=== PATIENT | female | born 1970 | race African-American/Black ===

== ENCOUNTER 2018-11-16 14:10 | Emergency (ER) | payer MEDICARE, MEDICAID ==
[~2018-11-16] VITALS: Ht 170.2 cm; Wt 90.0 kg
[~2018-11-16 14:10] MED LIST: ALUPENT; DILANTIN; PHENOBARBITAL
[2018-11-16] MEDS ORDERED: KETOROLAC 30MG/ML VIAL IV ONE (15:30)
[2018-11-16 15:45] LABS: HCG SCREEN NEGATIVE
[2018-11-16 15:46] LABS: CHLORIDE 109 mEq/L (98-107)
[2018-11-16 15:48] LABS: PARTIAL THROMBOPLASTIN TIME 24.3 sec (23.4-31.0); PROTHROMBIN TIME 10.2 sec (9.6-11.0)
[2018-11-16 15:50] VITALS: BP 110/59
[2018-11-16 15:50] LABS: BASOPHILS % 0.4 % (0.0-2.0); EOSINOPHILS % 2.6 % (0.0-5.0); ETHANOL BLOOD < 10 mg/dL; HEMATOCRIT. 34.1 % (36.0-48.0); HEMOGLOBIN. 10.9 g/dL (12.0-16.0); LYMPHOCYTES % 27.8 % (20.0-50.0); MEAN CORPUSCULAR HEMOGLOBIN 24.4 pg (28.0-32.0); MEAN CORPUSCULAR VOLUME 76.2 fL (81.0-99.0); MONOCYTES % 8.3 % (2.0-8.0); NEUTROPHILS % 60.9 % (40.0-76.0); PLATELET 354 x1000/uL (130-400); RED BLOOD CELL COUNT 4.48 mill/uL (4.2-5.4)
[2018-11-16 16:00] LABS: METHADONE URINE SCREEN NEGATIVE (NEGATIVE)
[2018-11-16 16:02] LABS: *BARBITURATES SCREEN URINE NEGATIVE (NEGATIVE); CANNABINOID URINE SCREEN NEGATIVE (NEGATIVE); OPIATES URINE SCREEN NEGATIVE (NEGATIVE); PHENCYCLIDINE URINE SCREEN NEGATIVE (NEGATIVE)
[2018-11-16 16:03] LABS: *BENZODIAZEPINES SCREEN URINE NEGATIVE (NEGATIVE); *COCAINE SCREEN URINE NEGATIVE (NEGATIVE)
[2018-11-16 16:04] LABS: *AMPHETAMINES SCREEN URINE PRESUMTIVE POSITIVE (NEGATIVE)
== END 2018-11-16 17:42 | disposition left against medical advice (07) ==
LOC: ER 14:10
DX: R07.89 Other chest pain (principal); F15.129 Other stimulant abuse with intoxication, unspecified; I11.0 Hypertensive heart disease with heart failure; I50.9 Heart failure, unspecified; F91.8 Other conduct disorders; G40.909 Epilepsy, unspecified, not intractable, without status epilepticus; Z86.73 Personal history of transient ischemic attack (TIA), and cerebral infarction without residual deficits; F31.9 Bipolar disorder, unspecified
CPT/HCPCS: 36415; 71045; 80053; 80185; 80305; 80320; 81025; 83880; 84484; 84703; 85025; 85610; 85730; 93005; 96374; 99284; J1885; G0480

== ENCOUNTER 2023-08-23 18:38 | Emergency (ER) | payer MEDICARE, MEDICAID ==
[~2023-08-23] VITALS: Ht 175.3 cm; Wt 88.0 kg
[~2023-08-23 18:38] MED LIST changes: +ASPI-1160 PO; +INSLIS SUBCUT; +LIP40 PO; +METF-873 MT
[2023-08-23 23:09] LABS: BASOPHILS % 0.4 % (0.0-2.0); DIFFERENTIAL COMMENT 0; EOSINOPHILS % 2.3 % (0.0-5.0); HEMATOCRIT. 41.2 % (36.0-48.0); HEMOGLOBIN. 13.3 g/dL (12.0-16.0); LYMPHOCYTES % 34.1 % (20.0-50.0); MEAN CORPUSCULAR HEMOGLOBIN 25.3 pg (28.0-32.0); MEAN CORPUSCULAR HGB CONC 32.4 g/dL (31.0-37.0); MEAN CORPUSCULAR VOLUME 78.2 fL (81.0-99.0); MONOCYTES % 5.3 % (2.0-8.0); NEUTROPHILS % 57.9 % (40.0-76.0); PLATELET 256 x1000/uL (130-400); RED BLOOD CELL COUNT 5.27 mill/uL (4.2-5.4); RED CELL DISTRIBUTION WIDTH 18.4 % (11.6-14.6); WHITE BLOOD COUNT 6.3 x1000/uL (4.5-11.0)
[2023-08-23 23:19] LABS: ACETAMINOPHEN < 2 ug/mL (10-30); ALANINE AMINOTRANSFERASE 13 IU/L (10-49); ALBUMIN 4.3 g/dL (3.2-4.8); ASPARTATE AMINOTRANSFERASE 14 IU/L (<34); BILIRUBIN TOTAL 0.3 mg/dL (0.1-1.0); CALCIUM 9.2 mg/dL (8.7-10.4); CARBON DIOXIDE 27 mEq/L (21-32); CHLORIDE 105 mEq/L (98-107); CREATININE 0.7 mg/dL (0.6-1.0); GLUCOSE 120 mg/dL (70-105); PROTEIN TOTAL 7.2 g/dL (6.0-8.3); SODIUM 140 mEq/L (136-145); UREA NITROGEN BLOOD 9 mg/dL (9-23)
[2023-08-23 23:20] LABS: ETHANOL BLOOD < 10 mg/dL (<10)
[2023-08-23] MEDS ORDERED: POTASSIUM CHLORIDE 20MEQ TABLET SR PO ONE (23:45)
[2023-08-24] MEDS: POTASSIUM CHLORIDE 20MEQ TABLET SR PO NR (01:57)
[2023-08-24 05:46] LABS: CLARITY URINE CLEAR (CLEAR); COLOR URINE YELLOW (YELLOW); GLUCOSE URINE 3+ (NEGATIVE); KETONES URINE NEGATIVE (NEGATIVE); LEUKOCYTE ESTERASE URINE NEGATIVE (NEGATIVE); NITRITE URINE NEGATIVE (NEGATIVE); OCCULT BLOOD URINE NEGATIVE (NEGATIVE); PROTEIN URINE NEGATIVE (NEGATIVE); SPECIFIC GRAVITY URINE 1.042 (1.005-1.030)
[2023-08-24 05:52] LABS: *AMPHETAMINES SCREEN URINE PRESUMPTIVE POSITIVE (NEGATIVE); *BARBITURATES SCREEN URINE NEGATIVE (NEGATIVE); *BENZODIAZEPINES SCREEN URINE NEGATIVE (NEGATIVE); *COCAINE SCREEN URINE NEGATIVE (NEGATIVE); CANNABINOID URINE SCREEN NEGATIVE (NEGATIVE); ECSTASY MDMA SCREEN URINE NEGATIVE (NEGATIVE); METHADONE URINE SCREEN Neg (NEGATIVE); OPIATES URINE SCREEN NEGATIVE (NEGATIVE); PHENCYCLIDINE URINE SCREEN NEGATIVE (NEGATIVE)
[2023-08-24 06:21] LABS: SQUAMOUS EPITHELIAL CELL URINE 1+ /lpf (RARE/1+)
[2023-08-24 06:23] LABS: BACTERIA URINE 1+; RBC URINE 0-2 /hpf (0-2); WBC URINE 0-2 /hpf (0-2)
[2023-08-24] MEDS ORDERED: DIPHENHYDRAMINE 50MG/ML VIAL IM PRN (20:30)
[2023-08-24 20:41] VITALS: O2SAT 97
[2023-08-24] MEDS: MIDAZOLAM HCL 2 MG/2 ML VIAL IM ONE (20:41)
[2023-08-25] MEDS: ACETAMINOPHEN 325MG TABLET PO ONE (11:21)
[2023-08-25 19:08] VITALS: BP 121/89; PULSE 100; RESP 16; TEMP 97.8
== END 2023-08-25 19:30 | disposition short-term general hospital (02) ==
LOC: ER 18:38
DX: T50.902A Poisoning by unspecified drugs, medicaments and biological substances, intentional self-harm, initial encounter (principal); J45.909 Unspecified asthma, uncomplicated; F31.9 Bipolar disorder, unspecified; I11.9 Hypertensive heart disease without heart failure; I25.2 Old myocardial infarction; Z86.73 Personal history of transient ischemic attack (TIA), and cerebral infarction without residual deficits; Z20.822 Contact with and (suspected) exposure to COVID-19; Z88.0 Allergy status to penicillin; Y92.89 Other specified places as the place of occurrence of the external cause
CPT/HCPCS: 80053; 80305; 81003; 80307; 80329; 80320; 82962; 85025; 36415; 93005; 96372; 99285; 87426; J2250; G0480

== ENCOUNTER 2024-08-13 22:05 | Emergency (ER) | payer MEDICARE, MEDICAID ==
[~2024-08-13] VITALS: Ht 167.6 cm; Wt 72.0 kg
[~2024-08-13 22:05] MED LIST changes: +METF-1149 MT; -METF-873 MT
[2024-08-13 22:18] VITALS: O2SAT 99
[2024-08-13] MEDS: KETOROLAC 30MG/ML VIAL IM ONE (23:36)
[2024-08-14] MEDS ORDERED: HYDR-4001 MT (01:31)
[2024-08-14 01:46] VITALS: BP 118/68; PULSE 98; RESP 18; TEMP 36.9; O2SAT 99
== END 2024-08-14 01:47 | disposition home or self-care (01) ==
LOC: ER 22:05
DX: S82.442A Displaced spiral fracture of shaft of left fibula, initial encounter for closed fracture (principal); S82.252A Displaced comminuted fracture of shaft of left tibia, initial encounter for closed fracture; Z79.82 Long term (current) use of aspirin; Z79.84 Long term (current) use of oral hypoglycemic drugs; Z79.899 Other long term (current) drug therapy; Z88.0 Allergy status to penicillin; W19.XXXA Unspecified fall, initial encounter; Y93.01 Activity, walking, marching and hiking; Y92.89 Other specified places as the place of occurrence of the external cause; Y99.8 Other external cause status
CPT/HCPCS: 99284; 29515; 73630; 96372; 73560; 73590; 73610; J1885

== ENCOUNTER 2025-03-01 16:59 | Emergency (ER) | payer MEDICARE, MEDICAID ==
[~2025-03-01] VITALS: Ht 172.7 cm; Wt 81.0 kg
[~2025-03-01 16:59] MED LIST changes: +HYDR-4001 MT
[2025-03-01 17:01] VITALS: O2SAT 98
[2025-03-01] MEDS: BLOOD SUGAR DIAGNOSTIC STRIP TEST SCH (17:50)
[2025-03-01] MEDS: SODIUM CHLORIDE 0.9% 1,000 ML IV ONE (17:50)
[2025-03-01 18:08] LABS: BG BASE EXCESS -3.8 mmol/L (-2.0-3.0); BG CARBOXYHEMOGLOBIN 7.4 % (0.5-1.5); BG DEOXYHEMOGLOBIN 2.4 % (0.0-5.0); BG FRACTION INSPIRED OXYGEN 21; BG HCO3 ACT 19.9 mmol/L (21.0-28.0); BG METHEMOGLOBIN 0.3 % (0.5-1.5); BG OXYGEN SATURATION 97.4 % (94.0-98.0); BG OXYHEMOGLOBIN 89.9 % (94.0-98.0); BG PCO2 32.3 mmHg (32.0-45.0); BG PH 7.407 (7.350-7.450); BG PO2 96.3 mmHg (83.0-108.0); BG SAMPLE SITE RIGHT RADIAL; BG TOTAL HEMOGLOBIN 14.4 g/dL (12.0-16.0); BG VENT MODE ROOM AIR
[2025-03-01 18:36] LABS: CREATININE 1.1 mg/dL (0.6-1.0); UREA NITROGEN BLOOD 7 mg/dL (9-23)
[2025-03-01 18:37] LABS: TROPONIN I HIGH SENSITIVITY 5 ng/L (3.0-34)
[2025-03-01 18:38] LABS: PHOSPHORUS 2.8 mg/dL (2.5-4.9)
[2025-03-01] MEDS: INSULIN REGULAR (HUMULIN R) 1000UNITS/10ML VIAL SUBCUT ONE ×2 (19:21→21:30)
[2025-03-01 20:13] LABS: PLATELET 175 x1000/uL (130-400); RED BLOOD CELL COUNT 5.50 mill/uL (4.2-5.4); RED CELL DISTRIBUTION WIDTH 13.6 % (11.6-14.6)
[2025-03-01] MEDS: SODIUM CHLORIDE 0.9% 1,000 ML IV NR (20:26)
[2025-03-01 22:46] VITALS: BP 120/60; PULSE 91; RESP 16; TEMP 36.8; O2SAT 100
== END 2025-03-01 22:51 | disposition home or self-care (01) ==
LOC: ER 16:59 → CMPBEDREQ 23:19
DX: E11.65 Type 2 diabetes mellitus with hyperglycemia (principal); Z55.6 Problems related to health literacy; Z79.4 Long term (current) use of insulin; Z79.82 Long term (current) use of aspirin; Z79.84 Long term (current) use of oral hypoglycemic drugs; Z79.899 Other long term (current) drug therapy; Z88.0 Allergy status to penicillin; Z91.148 Patient's other noncompliance with medication regimen for other reason
CPT/HCPCS: 99291; 96360; 96361; 80048; 82010; 82962; 83735; 83930; 84100; 85027; 84484; 36415; 71045; 82805; 82375; 36600; J7030; J1815